=== PATIENT | female | born 1990 | race African-American/Black ===

== ENCOUNTER 2016-07-21 19:31 | Emergency (ER) | payer BC, OTHER ==
--- NOTE | 2016-07-21 20:44 | RAD ---
INDICATION: Shortness of breath. Chest pain, wheezing. COMPARISON: September 07, 2015 CT abdomen. TECHNIQUE: Dual energy PA and routine lateral views of the chest were obtained. REPORT: Clear lungs and pleural spaces. Negative for pneumothorax. The heart, pulmonary vasculature, and mediastinal contours are unremarkable. Unremarkable osseous structures and soft tissue contours. IMPRESSION: No evidence for pneumonia. Negative exam.
--- NOTE | 2016-07-21 20:59 | ED ---
I, Oh,Matilda, scribed for Matt Bustillos MD on 07/21/16 at 1951 . HPI Chest Pain - HPI Summary HPI Summary: This 25 y/o female presents to ED for acute CP since today AM. Pt also reports dyspnea, chest congestion, and chills, but denies any fever. She has been controlling her symptoms with Mucinex and cough drops without much relief. Pt expresses concern about possible sick contact from her father, who was admitted at [facility] with bronchitis 3 days ago. PMHx includes asthma and kidney infection as a child. She is current someday smoker. - History of Current Complaint Chief Complaint: EDShortnessOfBreath Time Seen by Provider: 07/21/16 19:40 Hx Obtained From: Patient, Medical Records Onset/Duration: Started Hours Ago, Atraumatic, Still Present Timing: Constant Pain Intensity: 9 Pain Scale Used: 0-10 Numeric Chest Pain Location: Diffuse Chest Pain Radiates: No Character: Dull/Aching Aggravating Factor(s): Nothing Alleviating Factor(s): Nothing Associated Signs and Symptoms: Positive: Chest Pain, Shortness of Breath, Chills - Allergy/Home Medications Allergies/Adverse Reactions: Allergies Allergy/AdvReac Type Severity Reaction Status Date / Time Penicillins [PCN] Allergy Unknown Unknown Verified 11/28/15 18:36 Reaction Details Pollen Extract Allergy Eyes Verified 11/28/15 18:36 Itchy/Swollen/Red/Watery PMH/Surg Hx/FS Hx/Imm Hx Endocrine/Hematology History: Reports: Hx Anemia Respiratory History: Reports: Hx Asthma - A CHILD - Surgical History Surgery Procedure, Year, and Place: RIGHT BREAST CYST REMOVAL Infectious Disease History: No Infectious Disease History: Denies: Traveled Outside the [place] in Last 30 Days - Family History Known Family History: Positive: Cardiac Disease - Social History Alcohol Use: None Hx Substance Use: No Substance Use Type: Reports: None Hx Tobacco Use: Yes Smoking Status (MU): Current Some Day Smoker Review of Systems Positive: Chills. Negative: Fever Positive: Chest Pain Positive: Shortness Of Breath, Other - chest congestion. Negative: Anxious, Depressed All Other Systems Reviewed And Are Negative: Yes Physical Exam Triage Information Reviewed: Yes Vital Signs On Initial Exam: Initial Vitals Temp Pulse Resp BP Pulse Ox 99 F 116 22 139/86 100 07/21/16 19:33 07/21/16 19:33 07/21/16 19:33 07/21/16 19:33 07/21/16 19:33 Vital Signs Reviewed: Yes Appearance: Positive: Well-Appearing, No Pain Distress, Thin Skin: Positive: Warm Head/Face: Positive: Normal Head/Face Inspection Eyes: Positive: JUDY ENT: Positive: Normal ENT inspection Neck: Positive: Supple Respiratory/Lung Sounds: Positive: Clear to Auscultation, Breath Sounds Present Cardiovascular: Positive: RRR Abdomen Description: Positive: Nontender, Soft Bowel Sounds: Positive: Present Musculoskeletal: Positive: Strength/ROM Intact Neurological: Positive: Sensory/Motor Intact, Alert, Oriented to Person Place, Time Psychiatric: Positive: Affect/Mood Appropriate Diagnostics - Vital Signs Vital Signs Temp Pulse Resp BP Pulse Ox 07/21/16 19:33 99 F 116 22 139/86 100 - Laboratory Lab Statement: Any lab studies that have been ordered have been reviewed, and results considered in the medical decision making process. - Radiology CXR Xray Interpretation: No Acute Changes Radiology Interpretation Completed By: Radiologist Chest Pain Course/Dx - Diagnoses Provider Diagnoses: URI (upper respiratory infection) Discharge - Discharge Plan Condition: Stable Disposition: HOME Patient Education Materials: Upper Respiratory Infection (ED) Referrals: Taina Wesley MD [Primary Care Provider] - 2 Days The documentation as recorded by the Jeremie welsh Soohyun accurately reflects the service I personally performed and the decisions made by Tressa villa David, MD.
[2016-07-21 21:20] VITALS: BP 110/68
== END 2016-07-21 21:19 | disposition home or self-care (01) ==
LOC: ED 19:31
DX: R07.9 Chest pain, unspecified (principal); R68.83 Chills (without fever); R06.02 Shortness of breath; J06.9 Acute upper respiratory infection, unspecified; Z72.0 Tobacco use
CPT/HCPCS: 71020; 99282

== ENCOUNTER 2018-01-04 09:39 | Emergency (ER) | payer BC, OTHER ==
[2018-01-04 10:02] VITALS: BP 119/80
--- NOTE | 2018-01-04 10:05 | UC ---
Complaint Female HPI - HPI Summary HPI Summary: This is anitha Kelly Jose Miguel documenting for attending Dr. Naima Swain MD. The patient is a 27 y/o F presenting to [facility] c/o large red bump on her left labia which she noticed yesterday. The bump is not itchy, and there is not any discharge. She reports that it only hurts if something rubs against the bump. LNMP: 12/28/17. She is not on control. She has hx of asthma and a cyst in her right breast. - History Of Current Complaint Stated Complaint: PERSONAL Time Seen by Provider: 01/04/18 09:45 Hx Obtained From: Patient Hx Last Menstrual Period: 11/26/15 Onset/Duration: Sudden Onset, Lasting Hours - started yesterday, Still Present Timing: Constant Severity Initially: Mild Severity Currently: Mild Pain Scale Used: 0-10 Numeric Character: Not Applicable Aggravating Factor(s): Other - clothing rubbbing against bump Alleviating Factor(s): Nothing Associated Signs And Symptoms: Positive: Negative - discharge from bump, Genital Blisters - small bump on left outer labia. Negative: Fever - Allergies/Home Medications Allergies/Adverse Reactions: Allergies Allergy/AdvReac Type Severity Reaction Status Date / Time Penicillins Allergy Rash Verified 01/04/18 09:59 pollen extracts Allergy Rash Verified 01/04/18 09:59 PMH/Surg Hx/FS Hx/Imm Hx Other Cardiovascular History: NEGATIVE: HTN Respiratory History: Asthma - Surgical History Surgical History: Yes Surgery Procedure, Year, and Place: RIGHT BREAST CYST REMOVAL - Family History Known Family History: Positive: Cardiac Disease, Other - breast cancer Family History: NON CONTRIBUTORY - Social History Alcohol Use: None Substance Use Type: None Smoking Status (MU): Current Some Day Smoker Household Exposure Type: Cigarettes Review of Systems Constitutional: Other - NEGATIVE: fever Genitourinary: Other - POSITIVE: red bump on left outer labia; NEGATIVE: discharge from bump All Other Systems Reviewed And Are Negative: Yes Physical Exam - Summary Physical Exam Summary: Appearance: Well-appearing, Well-nourished Skin: Warm Eyes: Normal ENT: Normal Neck: Supple, nontender Respiratory: Clear to auscultation Cardiovascular: Regular rate, regular rhythm. Normal S1, S2. Abdomen: Soft, nontender Musculoskeletal: Normal, Strength/ROM Intact Pelvic Exam: 1x1cm oblong, tender erythematous lesion on mid left labia majora , no discharge Neurological: Normal, A&Ox3 Psychiatric: Normal General: No acute distress Triage Information Reviewed: Yes Vital Signs Reviewed: Yes Complaint Female Dx - Course Course Of Treatment: labial tenderness, suspect infected follicle. Will tx with abx and if no improvement with PO abx within one week advised to follow up with [facility]PER[facility] to r/o Bartholin cyst swelling/infection - Differential Dx/Diagnosis Provider Diagnoses: labial folliculitis Discharge - Sign-Out/Discharge Documenting (check all that apply): Patient Departure - Pt will be discharged home wiht f/u with D[facility] BOX OPERATOR in one week if sx persist. - Discharge Plan Condition: Stable Disposition: HOME Prescriptions: Cephalexin CAP* [Keflex CAP*] 500 mg PO QID 7 Days #28 cap Patient Education Materials: Folliculitis (ED) Referrals: Taina Wesley MD [Primary Care Provider] - Additional Instructions: Follow with with DYE BOX OPERATOR within one week if condition does not improve - Billing Disposition and Condition Condition: STABLE Disposition: Home
== END 2018-01-04 10:26 | disposition home or self-care (01) ==
LOC: UCEAST 09:39
DX: L73.8 Other specified follicular disorders (principal); Z88.0 Allergy status to penicillin; F17.210 Nicotine dependence, cigarettes, uncomplicated
CPT/HCPCS: 36415; 86703; 99212; G0463

== ENCOUNTER 2018-02-07 17:07 | Emergency (ER) | payer SELFPAY ==
[2018-02-07 17:22] VITALS: BP 96/62
--- NOTE | 2018-02-07 17:56 | UC ---
Complaint Female HPI - HPI Summary HPI Summary: Had sex with her boyfriend the night before last and this morning noted some spotting. No abdominal pain or vaginal discharge. No fever. No urinary symptoms. LMP about 2 weeks ago. - History Of Current Complaint Chief Complaint: UCGU Stated Complaint: ABNORMAL BLEEDING Time Seen by Provider: 02/07/18 17:24 Hx Obtained From: Patient Hx Last Menstrual Period: 01/23/18 Onset/Duration: Sudden Onset, Lasting Hours, Still Present Severity Initially: Mild Severity Currently: Mild Pain Intensity: 0 Pain Scale Used: 0-10 Numeric Character: Not Applicable Associated Signs And Symptoms: Positive: Vaginal Bleeding/Discharge - Allergies/Home Medications Allergies/Adverse Reactions: Allergies Allergy/AdvReac Type Severity Reaction Status Date / Time Penicillins Allergy Rash Verified 02/07/18 17:22 pollen extracts Allergy Rash Verified 02/07/18 17:22 PMH/Surg Hx/FS Hx/Imm Hx Respiratory History: Asthma - Surgical History Surgical History: Yes Surgery Procedure, Year, and Place: RIGHT BREAST CYST REMOVAL - Family History Known Family History: Positive: Cardiac Disease, Other - breast cancer Family History: NON CONTRIBUTORY - Social History Alcohol Use: Occasionally Substance Use Type: Marijuana Substance Use Comment - Amount & Last Used: 3 times a day Smoking Status (MU): Current Some Day Smoker Type: Cigars Amount Used/How Often: 1 cig/day Household Exposure Type: Cigarettes Review of Systems Constitutional: Negative Respiratory: Negative Cardiovascular: Negative Gastrointestinal: Negative Genitourinary: Abnormal Bleeding All Other Systems Reviewed And Are Negative: Yes Physical Exam Triage Information Reviewed: Yes Appearance: Well-Appearing, No Pain Distress, Well-Nourished Vital Signs: Initial Vital Signs Temp 98.2 F 02/07/18 17:17 Pulse 69 02/07/18 17:17 Resp 18 02/07/18 17:17 BP 96/62 02/07/18 17:17 Pulse Ox 100 02/07/18 17:17 Vital Signs Reviewed: Yes Eyes: Positive: Conjunctiva Clear ENT: Positive: Hearing grossly normal Neck: Positive: Supple Respiratory: Positive: No respiratory distress, No accessory muscle use Cardiovascular: Positive: Pulses Normal Abdomen Description: Positive: Nontender, Soft Musculoskeletal: Positive: No Edema Neurological: Positive: Alert Psychological: Positive: Age Appropriate Behavior Skin: Negative: rashes Complaint Female Dx - Course Course Of Treatment: Patient declines test today. Thought she was having implantation bleeding and just needed some counseling and reassurance. States she has a test at home and will take it if she is late for her period. - Differential Dx/Diagnosis Provider Diagnoses: POST COITAL BLEEDING Discharge - Sign-Out/Discharge Documenting (check all that apply): Patient Departure All imaging exams completed and their final reports reviewed: No Studies - Discharge Plan Condition: Stable Disposition: HOME Prescriptions: Levonorgestrel [Plan B One-Step] 1.5 mg PO ONCE #1 tablet Referrals: Taina Wesley MD [Primary Care Provider] - If Needed Additional Instructions: YOU ARE LIKELY EXPERIENCING POSTCOITAL BLEEDING WHICH IS SIMPLY SOME SPOTTING THAT CAN OCCUR AFTER SEX DUE TO MECHANICAL TRAUMA. THIS SHOULD LET UP OVER THE NEXT FEW DAYS. ERX FOR PLAN B SENT TO [facility]. TAKE IT WITHIN 72 HOURS FOR BEST EFFECT. ALWAYS USE A CONDOM TO HELP PREVENT AGAINST STDS. FOLLOW-UP WITH [facility] TO DISCUSS CONTRACEPTIVE OPTIONS FOR YOU. [facility] Address: [address] [place] [address] - Billing Disposition and Condition Condition: STABLE Disposition: Home
--- NOTE | 2018-02-08 13:17 | UC ---
- Progress Note Progress Note: no images this encounter Discharge - Sign-Out/Discharge Documenting (check all that apply): Post-Discharge Follow Up All imaging exams completed and their final reports reviewed: No Studies - Discharge Plan Condition: Stable Disposition: HOME Prescriptions: Levonorgestrel [Plan B One-Step] 1.5 mg PO ONCE #1 tablet Referrals: Taina Wesley MD [Primary Care Provider] - If Needed Additional Instructions: YOU ARE LIKELY EXPERIENCING POSTCOITAL BLEEDING WHICH IS SIMPLY SOME SPOTTING THAT CAN OCCUR AFTER SEX DUE TO MECHANICAL TRAUMA. THIS SHOULD LET UP OVER THE NEXT FEW DAYS. ERX FOR PLAN B SENT TO [employer] [facility] [employer] [facility]. TAKE IT WITHIN 72 HOURS FOR BEST EFFECT. ALWAYS USE A CONDOM TO HELP PREVENT AGAINST STDS. FOLLOW-UP WITH [facility] TO DISCUSS CONTRACEPTIVE OPTIONS FOR YOU. [facility] Address: [address] [place] [id number] - Billing Disposition and Condition Condition: STABLE Disposition: Home
== END 2018-02-07 17:55 | disposition home or self-care (01) ==
LOC: UCEAST 17:07
DX: N93.0 Postcoital and contact bleeding (principal); Z88.0 Allergy status to penicillin
CPT/HCPCS: 99212; G0463

== ENCOUNTER 2018-05-28 15:01 | Emergency (ER) | payer OTHER ==
[2018-05-28 15:14] VITALS: BP 117/74
--- NOTE | 2018-05-28 15:37 | UC ---
Lower Extremity/Ankle HPI - HPI Summary HPI Summary: 27-year-old woman comes to clinic today with a chief complaint of swelling and pain in the right lower mckeon. In February 2018 while at work the patient struck her mckeon on a wheelchair. She did have a skin break at that time and some tenderness at that time. The injury healed itself up but since that time the area started to swallow up and it's joint become tender. No fevers or chills. It is worse with palpation it's less with rest. His been no drainage from the area. - History of Current Complaint Chief Complaint: UCLowerExtremity Stated Complaint: LEG PAIN, BUMP ON LEG Time Seen by Provider: 05/28/18 15:23 Hx Last Menstrual Period: 05/25/2018 Pain Intensity: 7 - Allergies/Home Medications Allergies/Adverse Reactions: Allergies Allergy/AdvReac Type Severity Reaction Status Date / Time Penicillins Allergy Rash Verified 02/07/18 17:22 pollen extracts Allergy Rash Verified 02/07/18 17:22 PMH/Surg Hx/FS Hx/Imm Hx Previously Healthy: Yes - Surgical History Surgical History: Yes Surgery Procedure, Year, and Place: RIGHT BREAST CYST REMOVAL - Family History Known Family History: Positive: Cardiac Disease, Other - breast cancer Family History: NON CONTRIBUTORY - Social History Alcohol Use: Weekly Substance Use Type: Marijuana Substance Use Comment - Amount & Last Used: occasionally Smoking Status (MU): Current Some Day Smoker Type: Cigars Amount Used/How Often: 1 cig/day Household Exposure Type: Cigarettes - Immunization History Most Recent Tetanus Shot: UNKNOWN Review of Systems All Other Systems Reviewed And Are Negative: Yes Constitutional: Positive: Negative Skin: Positive: Other - SEE HPI Eyes: Positive: Negative ENT: Positive: Negative Respiratory: Positive: Negative Cardiovascular: Positive: Negative Gastrointestinal: Positive: Negative Motor: Positive: Negative Neurovascular: Positive: Negative Musculoskeletal: Positive: Other: - SEE HPI Neurological: Positive: Negative Psychological: Positive: Negative Is Patient Immunocompromised?: No Physical Exam Triage Information Reviewed: Yes Appearance: Well-Appearing, No Pain Distress, Well-Nourished Vital Signs: Initial Vital Signs Temp 98.6 F 05/28/18 15:06 Pulse 84 05/28/18 15:06 Resp 18 05/28/18 15:06 BP 117/74 05/28/18 15:06 Pulse Ox 100 05/28/18 15:06 Vital Signs Reviewed: Yes Eye Exam: Normal Eyes: Positive: Conjunctiva Clear Neck exam: Normal Neck: Positive: Supple Respiratory: Positive: No respiratory distress Musculoskeletal: Positive: Strength Intact, ROM Intact, Other: - On the lower anterior mckeon on the right as a subcutaneous swelling that's soft and mobile. It's mildly tender to palpation. It is not hot to palpation. There is no drainage. Neurological Exam: Normal Neurological: Positive: Alert, Muscle Tone Normal Psychological Exam: Normal Psychological: Positive: Age Appropriate Behavior Skin Exam: Normal Lower Extremity Course/Dx - Differential Dx/Diagnosis Provider Diagnosis: Localized soft tissue swelling Discharge - Sign-Out/Discharge Documenting (check all that apply): Patient Departure All imaging exams completed and their final reports reviewed: No Studies - Discharge Plan Condition: Stable Disposition: HOME Prescriptions: Cephalexin CAP* [Keflex CAP*] 500 mg PO QID #40 cap Patient Education Materials: Soft Tissue Mass (ED) Referrals: Taina Wesley MD [Primary Care Provider] - David Linda MD [Medical Doctor] - Additional Instructions: FOLLOW UP WITH ORTHOPEDICS FOR FURTHER EVALUATION OF THE SOFT TISSUE SWELLING ON YOUR RIGHT LEG. GET RECHECKED FOR ANY WORSENING OF YOUR CONDITION OR QUESTIONS OR CONCERNS. - Billing Disposition and Condition Condition: STABLE Disposition: Home
== END 2018-05-28 16:30 | disposition home or self-care (01) ==
LOC: UCEAST 15:01
DX: R22.41 Localized swelling, mass and lump, right lower limb (principal); Z88.0 Allergy status to penicillin; F17.210 Nicotine dependence, cigarettes, uncomplicated
CPT/HCPCS: 84702; 99212; G0463